=== PATIENT | female | born 1975 | race Two or more races ===

== ENCOUNTER 2022-02-09 11:16 | Day surgery (SDC) | payer BC ==
[~2022-02-09] VITALS: Ht 167.6 cm; Wt 101.2 kg
[2022-02-09 11:45] LABS: CALCIUM, SERUM 9.2 mg/dL (8.5-10.1); CREATININE 0.9 mg/dL (0.6-1.3)
[2022-02-09] MEDS ORDERED: IV NS 0.9% 250 ML IV ONE (12:31)
[2022-02-09] MEDS ORDERED: CT SWABBABLE VALVE TRANS SET 1 EA INFUS.SET MC ONE (12:31)
[2022-02-09] MEDS ORDERED: IOHEXOL-350 100 ML VIAL IV ONE (12:31)
[2022-02-09] MEDS ORDERED: METOPROLOL TARTRATE INJ 5 MG/5 ML AMPUL ONE (12:37)
[2022-02-09 12:44] VITALS: BP 119/65
[2022-02-09] MEDS ORDERED: NITROGLYCERIN 0.4 MG/TAB BOTTLE SL PRN (13:00)
[2022-02-09] MEDS ORDERED: METOPROLOL TARTRATE INJ 5 MG/5 ML AMPUL IVP PRN (13:00)
== END 2022-02-09 12:52 | disposition home or self-care (01) ==
LOC: CT 11:16
PROVIDERS: ATTEND Internal Medicine Interventional Cardiology
DX: R94.4 Abnormal results of kidney function studies (principal); R94.31 Abnormal electrocardiogram [ECG] [EKG]; R00.2 Palpitations; R07.9 Chest pain, unspecified
CPT/HCPCS: 36415; 75574; 80048; J3490; J7050; Q9967